=== PATIENT | male | born 1955 | race Caucasian/White ===

== ENCOUNTER 2022-05-12 02:05 | Inpatient (IN) | payer OTHER ==
[2022-05-12] MEDS ORDERED: Vancomycin 1 GM/200 ML (FROZEN) BAG ONE (02:46)
[2022-05-12] MEDS ORDERED: cefTRIAXone\\ROCEPHIN 1 GM VIAL ONE (02:46)
[2022-05-12] MEDS ORDERED: Acetaminophen 500 MG TAB ONE (02:46)
[2022-05-12 03:15] LABS: Band 19 % (5-11); Hemoglobin 12.2 g/dL (14.0-18.0); Lymphocytes 1 % (21-51); MDiff Complete? YES; Mean Corpuscular HGB CONC 31.9 g/dL (32.0-36.0); Mean Corpuscular Hemoglobin 25.5 pg (27.0-31.0); Mean Corpuscular Volume 79.9 fl (78.0-98.0); Mean Platelet Volume 8.3 fL (7.4-10.4); Monocytes 4 % (0-10); Neutrophil 76 % (42-75); Platelet Count 234 10x3/uL (130-400); Platelet Morphology Comment Appears Adequate; RBC Distribution Width 16.1 % (11.5-14.5); RBC Morphology Normal; Red Blood Cell (RBC) Count 4.78 mill/uL (4.70-6.10)
[2022-05-12] MEDS ORDERED: NOREPINEPHRINE 8 MG/250 ML-D5W 250 ML ONE ×2 (03:32→12:51)
[2022-05-12 03:40] LABS: ALT (SGPT) 13 U/L (8-55); AST (SGOT) 19 U/L (5-34); Albumin 2.8 g/dL (3.4-4.8); Alkaline Phosphatase 200 U/L (40-110); Anion Gap 17 mmol/L (10-20); BUN (Urea Nitrogen) 17 mg/dL (8.4-25.7); Bilirubin, Total 0.6 mg/dL (0.2-1.2); Calc. Creatinine Clearance 0 mL/min (70-130); Carbon Dioxide 13 mmol/L (23-31); Chloride 111 mmol/L (98-107); Estimated GFR 92; Globulin 2.7 g/dL (2.4-3.5); Glucose 78 mg/dL (80-115); Magnesium 1.4 mg/dL (1.6-2.6); Potassium 3.4 mmol/L (3.5-5.1); Protein, Total 5.5 g/dL (5.8-8.1); Sodium 138 mmol/L (136-145)
[2022-05-12 04:32] LABS: Bacteria/HPF None Seen HPF (None Seen); Bilirubin Negative (Negative); Blood, Urine 3+ (Negative); Clarity Extra Turbid (Clear); Glucose, Urine (Dipstick) Normal (Negative); Ketone, Urine Negative (Negative); Leukocyte 250 Leu/uL (Negative); Nitrite 2+ (Negative); Protein, Urine (Dipstick) 50 mg/dL (Neg-Trace); RBC/HPF Greater than 50 HPF (0-3); Specific Gravity, Urine 1.013 (1.002-1.036); Squamous Epithelial None Seen HPF (0-3); Urobilinogen Normal mg/dL (Less than 2); WBC/HPF Greater than 50 HPF (0-3)
[2022-05-12] MEDS ORDERED: Ondansetron PF 4 MG/2 ML Vial IVP PRN (05:07)
[2022-05-12] MEDS ORDERED: Acetaminophen 325 MG TAB PO PRN (05:07)
[2022-05-12] MEDS ORDERED: VANCOMYCIN IVPB PRN (05:09)
[2022-05-12] MEDS ORDERED: Dextrose 50% Abboject 50 ML SYRINGE SLOW IVP PRN (05:10)
[2022-05-12] MEDS ORDERED: Dextrose 5% in Water 1,000 ML IV PRN (05:10)
[2022-05-12] MEDS ORDERED: Potassium Chloride 20 MEQ TAB ONE (05:25)
[2022-05-12] MEDS ORDERED: Magnesium 2 GM/50 ML BAG (IN WATER) ONE (05:25)
[2022-05-12] MEDS ORDERED: Cefepime 2 GM VIAL ONE (05:43)
[2022-05-12] MEDS: Sodium Bicarbonate 150 MEQ in Dextrose 5% in Water 1,000 ML IV SCH ×2 (06:26→20:19)
[2022-05-12] MEDS: Cefepime 2 GM in Sodium Chloride 0.9% 100 ML IVPB SCH ×2 (06:37→17:49)
[2022-05-12 08:05] LABS: SARS-CoV-2 NAA Rapid Test Not Detected (NotDetected)
[2022-05-12] MEDS ORDERED: Famotidine 20 MG TAB ONE (08:31)
[2022-05-12] MEDS: Famotidine 20 MG TAB PO SCH ×2 (08:32→20:19)
[2022-05-12 08:33] LABS: Sodium 138 mmol/L (136-145)
[2022-05-12 08:34] LABS: Anion Gap 16 mmol/L (10-20); BUN (Urea Nitrogen) 18 mg/dL (8.4-25.7); Calc. Creatinine Clearance 0 mL/min (70-130); Calcium 7.8 mg/dL (7.8-10.44); Carbon Dioxide 14 mmol/L (23-31); Chloride 111 mmol/L (98-107); Estimated GFR 96; Glucose 70 mg/dL (80-115); Potassium 3.2 mmol/L (3.5-5.1)
[2022-05-12] MEDS ORDERED: Cefepime 2 GM in Sodium Chloride 0.9% 100 ML IVPB SCH (09:00)
[2022-05-12 09:34] LABS: Lactic Acid 3.9 mmol/L (0.5-2.2)
[2022-05-12] MEDS ORDERED: VANCOMYCIN 1.75 GM/500 ML BAG 1.75 GM in Premix Bag 1 BAG IVPB SCH (13:00)
[2022-05-12] MEDS ORDERED: NOREPINEPHRINE 8 MG/250 ML-D5W 250 ML IVPB SCH (13:00)
[2022-05-12] MEDS: Enoxaparin Sodium 40 MG/0.4 ML SYRINGE SC SCH (20:19)
[2022-05-12] MEDS ORDERED: Potassium Chloride 20 MEQ TAB PO SCH (21:30)
[2022-05-13] MEDS ORDERED: VANCOMYCIN 1.25 GM/250 ML BAG 1.25 GM in Premix Bag 1 BAG IVPB SCH (03:00)
[2022-05-13 05:10] LABS: Anisocytosis SLIGHT = 6-15 cells (100X) (0-5/hpf); Band 17 % (5-11); Hemoglobin 10.6 g/dL (14.0-18.0); Hypochromia SLIGHT = 6-15 cells (100X) (0-5/hpf); Lymphocytes 9 % (21-51); MDiff Complete? YES; Mean Corpuscular HGB CONC 30.9 g/dL (32.0-36.0); Mean Corpuscular Hemoglobin 25.2 pg (27.0-31.0); Mean Corpuscular Volume 81.5 fl (78.0-98.0); Mean Platelet Volume 8.5 fL (7.4-10.4); Monocytes 10 % (0-10); Neutrophil 63 % (42-75); Platelet Count 210 10x3/uL (130-400); Platelet Morphology Comment Appears Adequate; Polychromasia SLIGHT = 2-3 cells (100X) (0-2/hpf); Red Blood Cell (RBC) Count 4.21 mill/uL (4.70-6.10); White Blood Cell (WBC) Count 24.2 10x3/uL (4.8-10.8)
[2022-05-13 05:14] LABS: ALT (SGPT) 14 U/L (8-55); AST (SGOT) 22 U/L (5-34); Albumin 2.7 g/dL (3.4-4.8); Alkaline Phosphatase 189 U/L (40-110); Anion Gap 12 mmol/L (10-20); BUN (Urea Nitrogen) 13 mg/dL (8.4-25.7); Bilirubin, Total 0.4 mg/dL (0.2-1.2); Calc. Creatinine Clearance 120 mL/min (70-130); Calcium 8.6 mg/dL (7.8-10.44); Carbon Dioxide 25 mmol/L (23-31); Chloride 112 mmol/L (98-107); Estimated GFR 103; Globulin 2.9 g/dL (2.4-3.5); Glucose 86 mg/dL (80-115); Magnesium 2.1 mg/dL (1.6-2.6); Potassium 3.6 mmol/L (3.5-5.1); Protein, Total 5.6 g/dL (5.8-8.1); Sodium 145 mmol/L (136-145)
[2022-05-13] MEDS: Cefepime 2 GM in Sodium Chloride 0.9% 100 ML IVPB SCH ×3 (05:40→21:09)
[2022-05-13] MEDS: Famotidine 20 MG TAB PO SCH ×2 (10:20→21:08)
[2022-05-13] MEDS: Sodium Bicarbonate 150 MEQ in Dextrose 5% in Water 1,000 ML IV SCH (13:16)
[2022-05-13] MEDS: Enoxaparin Sodium 40 MG/0.4 ML SYRINGE SC SCH (21:08)
[2022-05-14 05:17] LABS: ALT (SGPT) 11 U/L (8-55); AST (SGOT) 18 U/L (5-34); Albumin 2.6 g/dL (3.4-4.8); Alkaline Phosphatase 187 U/L (40-110); Anion Gap 10 mmol/L (10-20); BUN (Urea Nitrogen) 11 mg/dL (8.4-25.7); Bilirubin, Total 0.5 mg/dL (0.2-1.2); Calc. Creatinine Clearance 129 mL/min (70-130); Calcium 8.5 mg/dL (7.8-10.44); Carbon Dioxide 24 mmol/L (23-31); Chloride 108 mmol/L (98-107); Estimated GFR 106; Globulin 2.8 g/dL (2.4-3.5); Glucose 80 mg/dL (80-115); Potassium 3.4 mmol/L (3.5-5.1); Protein, Total 5.4 g/dL (5.8-8.1); Sodium 139 mmol/L (136-145)
[2022-05-14 05:24] LABS: Band 32 % (5-11); Hemoglobin 10.4 g/dL (14.0-18.0); Hypochromia SLIGHT = 6-15 cells (100X) (0-5/hpf); Lymphocytes 11 % (21-51); MDiff Complete? YES; Mean Corpuscular HGB CONC 30.8 g/dL (32.0-36.0); Mean Corpuscular Hemoglobin 25.2 pg (27.0-31.0); Mean Corpuscular Volume 81.7 fl (78.0-98.0); Mean Platelet Volume 8.3 fL (7.4-10.4); Monocytes 5 % (0-10); Neutrophil 52 % (42-75); Platelet Count 238 10x3/uL (130-400); Platelet Morphology Comment Appears Adequate; RBC Distribution Width 15.9 % (11.5-14.5); Red Blood Cell (RBC) Count 4.14 mill/uL (4.70-6.10); White Blood Cell (WBC) Count 26.1 10x3/uL (4.8-10.8)
[2022-05-14] MEDS: Cefepime 2 GM in Sodium Chloride 0.9% 100 ML IVPB SCH ×3 (06:27→21:48)
[2022-05-14] MEDS: Famotidine 20 MG TAB PO SCH (09:00)
[2022-05-14] MEDS ORDERED: Potassium Chloride 20 MEQ TAB PO SCH (09:15)
[2022-05-14] MEDS ORDERED: traMADol HCl 50 MG TAB PO PRN (14:24)
[2022-05-14] MEDS ORDERED: Polyethylene Glycol 3350 17 GM Packet PO PRN (14:24)
[2022-05-14] MEDS ORDERED: tiZANidine HCl 4 MG TAB PO PRN (14:38)
[2022-05-14] MEDS: Ascorbic Acid 500 mg Chewable Tablet PO SCH (17:10)
[2022-05-14] MEDS: Atorvastatin Calcium 10 MG TAB PO SCH (20:28)
[2022-05-14] MEDS: Tamsulosin HCl 0.4 MG CAP PO SCH (20:28)
[2022-05-14] MEDS: Pramipexole Di-HCl 0.25 MG TAB PO SCH (20:28)
[2022-05-14] MEDS: traZODone HCl 50 MG TAB PO SCH (20:29)
[2022-05-14] MEDS: Enoxaparin Sodium 40 MG/0.4 ML SYRINGE SC SCH (20:29)
[2022-05-14] MEDS: Latanoprost 0.005% Ophth Soln 2.5 ml Bottle EA EYE SCH (20:29)
[2022-05-14] MEDS: Aspirin 81 mg Enteric Coated Tablet PO SCH (20:29)
[2022-05-14] MEDS: Timolol 0.5% Ophth Soln 5 ml Bottle EA EYE SCH (20:30)
[2022-05-15 05:06] LABS: Hemoglobin 10.9 g/dL (14.0-18.0); Mean Corpuscular HGB CONC 31.4 g/dL (32.0-36.0); Mean Corpuscular Hemoglobin 25.4 pg (27.0-31.0); Mean Corpuscular Volume 80.8 fl (78.0-98.0); Mean Platelet Volume 8.2 fL (7.4-10.4); Platelet Count 254 10x3/uL (130-400); Red Blood Cell (RBC) Count 4.31 mill/uL (4.70-6.10); White Blood Cell (WBC) Count 20.2 10x3/uL (4.8-10.8)
[2022-05-15 05:15] LABS: ALT (SGPT) 11 U/L (8-55); AST (SGOT) 15 U/L (5-34); Albumin 2.7 g/dL (3.4-4.8); Alkaline Phosphatase 182 U/L (40-110); Anion Gap 8 mmol/L (10-20); BUN (Urea Nitrogen) 11 mg/dL (8.4-25.7); Bilirubin, Total 0.6 mg/dL (0.2-1.2); Calc. Creatinine Clearance 119 mL/min (70-130); Calcium 8.7 mg/dL (7.8-10.44); Carbon Dioxide 27 mmol/L (23-31); Chloride 106 mmol/L (98-107); Estimated GFR 103; Glucose 88 mg/dL (80-115); Potassium 4.1 mmol/L (3.5-5.1); Protein, Total 5.7 g/dL (5.8-8.1); Sodium 137 mmol/L (136-145)
[2022-05-15 05:31] LABS: Anisocytosis SLIGHT = 6-15 cells (100X) (0-5/hpf); Band 17 % (5-11); Burr Cells SLIGHT = 2-5 cells (100X) (0-1/hpf); Eosinophils 1 % (0-10); Hypochromia SLIGHT = 6-15 cells (100X) (0-5/hpf); Lymphocytes 6 % (21-51); MDiff Complete? YES; Monocytes 2 % (0-10); Neutrophil 73 % (42-75); Platelet Morphology Comment Appears Adequate; Polychromasia SLIGHT = 2-3 cells (100X) (0-2/hpf)
[2022-05-15] MEDS: Cefepime 2 GM in Sodium Chloride 0.9% 100 ML IVPB SCH ×3 (05:44→22:33)
[2022-05-15] MEDS: Divalproex Sodium 125 mg Sprinkle Capsule PO SCH (10:13)
[2022-05-15] MEDS: Saccharomyces boulardii 250 MG CAP PO SCH (10:14)
[2022-05-15] MEDS: Ascorbic Acid 500 mg Chewable Tablet PO SCH ×2 (10:15→17:26)
[2022-05-15] MEDS: Potassium Chloride 20 MEQ TAB PO SCH (10:15)
[2022-05-15] MEDS: Multivit, Therapeutic 1 TAB PO SCH (10:15)
[2022-05-15] MEDS: DULoxetine 30 MG CAP PO SCH (10:15)
[2022-05-15] MEDS: Pramipexole Di-HCl 0.25 MG TAB PO SCH ×2 (10:16→22:32)
[2022-05-15] MEDS: Zinc Sulfate 220 MG CAP PO SCH (10:16)
[2022-05-15] MEDS: Timolol 0.5% Ophth Soln 5 ml Bottle EA EYE SCH ×2 (10:17→22:32)
[2022-05-15] MEDS: Tamsulosin HCl 0.4 MG CAP PO SCH (22:31)
[2022-05-15] MEDS: Enoxaparin Sodium 40 MG/0.4 ML SYRINGE SC SCH (22:31)
[2022-05-15] MEDS: traZODone HCl 50 MG TAB PO SCH (22:31)
[2022-05-15] MEDS: Atorvastatin Calcium 10 MG TAB PO SCH (22:31)
[2022-05-15] MEDS: Latanoprost 0.005% Ophth Soln 2.5 ml Bottle EA EYE SCH (22:32)
[2022-05-15] MEDS: Aspirin 81 mg Enteric Coated Tablet PO SCH (22:32)
[2022-05-16 04:32] LABS: Hemoglobin 11.7 g/dL (14.0-18.0); Mean Corpuscular Hemoglobin 24.4 pg (27.0-31.0); Mean Corpuscular Volume 81.4 fl (78.0-98.0); Mean Platelet Volume 8.3 fL (7.4-10.4); Platelet Count 271 10x3/uL (130-400); RBC Distribution Width 16.4 % (11.5-14.5); Red Blood Cell (RBC) Count 4.79 mill/uL (4.70-6.10); White Blood Cell (WBC) Count 15.9 10x3/uL (4.8-10.8)
[2022-05-16 04:56] LABS: Anion Gap 10 mmol/L (10-20); BUN (Urea Nitrogen) 10 mg/dL (8.4-25.7); Calc. Creatinine Clearance 109 mL/min (70-130); Calcium 8.8 mg/dL (7.8-10.44); Carbon Dioxide 24 mmol/L (23-31); Chloride 106 mmol/L (98-107); Estimated GFR 102; Glucose 91 mg/dL (80-115); Potassium 4.3 mmol/L (3.5-5.1); Sodium 136 mmol/L (136-145)
[2022-05-16 05:23] LABS: Anisocytosis SLIGHT = 6-15 cells (100X) (0-5/hpf); Band 2 % (5-11); Eosinophils 7 % (0-10); Hypochromia SLIGHT = 6-15 cells (100X) (0-5/hpf); Lymphocytes 18 % (21-51); MDiff Complete? YES; Metamyelocyte 4 % (0-0); Monocytes 9 % (0-10); Myelocyte 2 % (0-0); Neutrophil 57 % (42-75); Nucleated RBC 1 % (0); Platelet Morphology Comment Appears Adequate; Polychromasia SLIGHT = 2-3 cells (100X) (0-2/hpf)
[2022-05-16] MEDS: Cefepime 2 GM in Sodium Chloride 0.9% 100 ML IVPB SCH ×3 (05:50→21:31)
[2022-05-16] MEDS: Ascorbic Acid 500 mg Chewable Tablet PO SCH ×2 (09:16→17:20)
[2022-05-16] MEDS: Saccharomyces boulardii 250 MG CAP PO SCH (09:16)
[2022-05-16] MEDS: DULoxetine 30 MG CAP PO SCH (09:16)
[2022-05-16] MEDS: Potassium Chloride 20 MEQ TAB PO SCH (09:16)
[2022-05-16] MEDS: Timolol 0.5% Ophth Soln 5 ml Bottle EA EYE SCH ×2 (09:17→20:15)
[2022-05-16] MEDS: Multivit, Therapeutic 1 TAB PO SCH (09:17)
[2022-05-16] MEDS: Pramipexole Di-HCl 0.25 MG TAB PO SCH ×2 (09:17→20:16)
[2022-05-16] MEDS: Divalproex Sodium 125 mg Sprinkle Capsule PO SCH (09:17)
[2022-05-16] MEDS: Zinc Sulfate 220 MG CAP PO SCH (09:17)
[2022-05-16] MEDS: Latanoprost 0.005% Ophth Soln 2.5 ml Bottle EA EYE SCH (20:15)
[2022-05-16] MEDS: Atorvastatin Calcium 10 MG TAB PO SCH (20:16)
[2022-05-16] MEDS: traZODone HCl 50 MG TAB PO SCH (20:16)
[2022-05-16] MEDS: Tamsulosin HCl 0.4 MG CAP PO SCH (20:16)
[2022-05-16] MEDS: Aspirin 81 mg Enteric Coated Tablet PO SCH (20:16)
[2022-05-16] MEDS: Enoxaparin Sodium 40 MG/0.4 ML SYRINGE SC SCH (20:16)
[2022-05-17 05:29] LABS: Hemoglobin 12.2 g/dL (14.0-18.0); Mean Corpuscular HGB CONC 30.7 g/dL (32.0-36.0); Mean Corpuscular Hemoglobin 24.6 pg (27.0-31.0); Mean Corpuscular Volume 80.3 fl (78.0-98.0); Mean Platelet Volume 8.5 fL (7.4-10.4); Platelet Count 285 10x3/uL (130-400); RBC Distribution Width 16.5 % (11.5-14.5); Red Blood Cell (RBC) Count 4.94 mill/uL (4.70-6.10); White Blood Cell (WBC) Count 15.3 10x3/uL (4.8-10.8)
[2022-05-17] MEDS: Cefepime 2 GM in Sodium Chloride 0.9% 100 ML IVPB SCH ×3 (05:29→21:21)
[2022-05-17 05:32] LABS: Anion Gap 13 mmol/L (10-20); BUN (Urea Nitrogen) 11 mg/dL (8.4-25.7); Calc. Creatinine Clearance 120 mL/min (70-130); Calcium 9.3 mg/dL (7.8-10.44); Carbon Dioxide 22 mmol/L (23-31); Chloride 106 mmol/L (98-107); Estimated GFR 105; Glucose 92 mg/dL (80-115); Potassium 3.9 mmol/L (3.5-5.1); Sodium 137 mmol/L (136-145)
[2022-05-17 06:37] LABS: Band 4 % (5-11); Eosinophils 3 % (0-10); Lymphocytes 21 % (21-51); MDiff Complete? YES; Monocytes 9 % (0-10); Myelocyte 5 % (0-0); Neutrophil 58 % (42-75)
[2022-05-17] MEDS ORDERED: GUAIFENESIN SF SOLN 200 MG/10 ML UDCUP PO PRN (09:04)
[2022-05-17] MEDS: Ascorbic Acid 500 mg Chewable Tablet PO SCH ×2 (09:46→16:02)
[2022-05-17] MEDS: DULoxetine 30 MG CAP PO SCH (09:46)
[2022-05-17] MEDS: Pramipexole Di-HCl 0.25 MG TAB PO SCH ×2 (09:47→20:41)
[2022-05-17] MEDS: Potassium Chloride 20 MEQ TAB PO SCH (09:47)
[2022-05-17] MEDS: Multivit, Therapeutic 1 TAB PO SCH (09:48)
[2022-05-17] MEDS: Saccharomyces boulardii 250 MG CAP PO SCH (09:48)
[2022-05-17] MEDS: Timolol 0.5% Ophth Soln 5 ml Bottle EA EYE SCH ×2 (09:49→20:44)
[2022-05-17] MEDS: Divalproex Sodium 125 mg Sprinkle Capsule PO SCH (09:49)
[2022-05-17] MEDS: Zinc Sulfate 220 MG CAP PO SCH (09:58)
[2022-05-17 12:26] VITALS: BMI 21.1
[2022-05-17] MEDS: Enoxaparin Sodium 40 MG/0.4 ML SYRINGE SC SCH (20:41)
[2022-05-17] MEDS: traZODone HCl 50 MG TAB PO SCH (20:41)
[2022-05-17] MEDS: Atorvastatin Calcium 10 MG TAB PO SCH (20:42)
[2022-05-17] MEDS: Tamsulosin HCl 0.4 MG CAP PO SCH (20:42)
[2022-05-17] MEDS: Latanoprost 0.005% Ophth Soln 2.5 ml Bottle EA EYE SCH (20:43)
[2022-05-17] MEDS: Aspirin 81 mg Enteric Coated Tablet PO SCH (20:43)
[2022-05-17] MEDS: Ciprofloxacin 0.2% Otic (0.25ML CONTAINER) R EAR SCH (20:43)
[2022-05-18] MEDS: Cefepime 2 GM in Sodium Chloride 0.9% 100 ML IVPB SCH (05:20)
[2022-05-18] MEDS: Divalproex Sodium 125 mg Sprinkle Capsule PO SCH (08:24)
[2022-05-18] MEDS: Multivit, Therapeutic 1 TAB PO SCH (08:24)
[2022-05-18] MEDS: Ascorbic Acid 500 mg Chewable Tablet PO SCH ×2 (08:24→17:22)
[2022-05-18] MEDS: Timolol 0.5% Ophth Soln 5 ml Bottle EA EYE SCH ×2 (08:24→20:22)
[2022-05-18] MEDS: Zinc Sulfate 220 MG CAP PO SCH (08:24)
[2022-05-18] MEDS: Saccharomyces boulardii 250 MG CAP PO SCH (08:24)
[2022-05-18] MEDS: Pramipexole Di-HCl 0.25 MG TAB PO SCH ×2 (08:24→20:21)
[2022-05-18] MEDS: Potassium Chloride 20 MEQ TAB PO SCH (08:24)
[2022-05-18] MEDS: DULoxetine 30 MG CAP PO SCH (08:24)
[2022-05-18] MEDS: Ciprofloxacin 0.2% Otic (0.25ML CONTAINER) R EAR SCH ×2 (08:25→20:22)
[2022-05-18] MEDS: traZODone HCl 50 MG TAB PO SCH (20:21)
[2022-05-18] MEDS: Atorvastatin Calcium 10 MG TAB PO SCH (20:21)
[2022-05-18] MEDS: Aspirin 81 mg Enteric Coated Tablet PO SCH (20:21)
[2022-05-18] MEDS: Tamsulosin HCl 0.4 MG CAP PO SCH (20:21)
[2022-05-18] MEDS: Latanoprost 0.005% Ophth Soln 2.5 ml Bottle EA EYE SCH (20:22)
[2022-05-18] MEDS: Enoxaparin Sodium 40 MG/0.4 ML SYRINGE SC SCH (20:22)
[2022-05-19 06:50] LABS: Anion Gap 12 mmol/L (10-20); BUN (Urea Nitrogen) 11 mg/dL (8.4-25.7); Calc. Creatinine Clearance 110 mL/min (70-130); Calcium 8.9 mg/dL (7.8-10.44); Carbon Dioxide 23 mmol/L (23-31); Chloride 102 mmol/L (98-107); Estimated GFR 100; Glucose 108 mg/dL (80-115); Potassium 3.9 mmol/L (3.5-5.1); Sodium 133 mmol/L (136-145)
[2022-05-19 07:25] LABS: Band 6 % (5-11); Eosinophils 3 % (0-10); Hemoglobin 11.6 g/dL (14.0-18.0); Lymphocytes 26 % (21-51); MDiff Complete? YES; Mean Corpuscular HGB CONC 31.1 g/dL (32.0-36.0); Mean Corpuscular Hemoglobin 25.2 pg (27.0-31.0); Mean Platelet Volume 8.6 fL (7.4-10.4); Monocytes 5 % (0-10); Neutrophil 59 % (42-75); Platelet Count 290 10x3/uL (130-400); RBC Distribution Width 16.9 % (11.5-14.5); Red Blood Cell (RBC) Count 4.61 mill/uL (4.70-6.10); White Blood Cell (WBC) Count 11.5 10x3/uL (4.8-10.8)
[2022-05-19] MEDS: Saccharomyces boulardii 250 MG CAP PO SCH (08:19)
[2022-05-19] MEDS: Ascorbic Acid 500 mg Chewable Tablet PO SCH ×2 (08:20→17:09)
[2022-05-19] MEDS: Pramipexole Di-HCl 0.25 MG TAB PO SCH ×2 (08:20→20:34)
[2022-05-19] MEDS: Divalproex Sodium 125 mg Sprinkle Capsule PO SCH (08:20)
[2022-05-19] MEDS: Timolol 0.5% Ophth Soln 5 ml Bottle EA EYE SCH ×2 (08:20→20:30)
[2022-05-19] MEDS: DULoxetine 30 MG CAP PO SCH (08:20)
[2022-05-19] MEDS: Potassium Chloride 20 MEQ TAB PO SCH (08:20)
[2022-05-19] MEDS: Multivit, Therapeutic 1 TAB PO SCH (08:20)
[2022-05-19] MEDS: Zinc Sulfate 220 MG CAP PO SCH (08:20)
[2022-05-19] MEDS: Ciprofloxacin 0.2% Otic (0.25ML CONTAINER) R EAR SCH ×2 (08:21→20:29)
[2022-05-19] MEDS: traZODone HCl 50 MG TAB PO SCH (20:30)
[2022-05-19] MEDS: Atorvastatin Calcium 10 MG TAB PO SCH (20:30)
[2022-05-19] MEDS: Latanoprost 0.005% Ophth Soln 2.5 ml Bottle EA EYE SCH (20:36)
[2022-05-19] MEDS: Tamsulosin HCl 0.4 MG CAP PO SCH (20:36)
[2022-05-20 06:13] LABS: #Eosinphils 0.2 thou/uL (0.0-0.7); #Lymphocytes 3.1 thou/uL (1.20-3.40); #Monocytes 1.7 thou/uL (0.11-0.59); #Neutrophils 8.1 thou/uL (1.40-6.50); %Basophils 0.2 % (0.0-1.0); %Eosinophils 1.6 % (0.0-10.0); %Lymphocytes 23.4 % (21.0-51.0); %Monocytes 12.7 % (0.0-10.0); %Neutrophils 62.1 % (42.0-75.0); Hemoglobin 11.7 g/dL (14.0-18.0); Mean Corpuscular HGB CONC 30.7 g/dL (32.0-36.0); Mean Corpuscular Hemoglobin 24.7 pg (27.0-31.0); Mean Corpuscular Volume 80.4 fl (78.0-98.0); Mean Platelet Volume 8.5 fL (7.4-10.4); Platelet Count 348 10x3/uL (130-400); RBC Distribution Width 16.8 % (11.5-14.5); Red Blood Cell (RBC) Count 4.73 mill/uL (4.70-6.10)
[2022-05-20] MEDS: Ciprofloxacin 0.2% Otic (0.25ML CONTAINER) R EAR SCH (09:02)
[2022-05-20] MEDS: Timolol 0.5% Ophth Soln 5 ml Bottle EA EYE SCH (09:02)
[2022-05-20] MEDS: Pramipexole Di-HCl 0.25 MG TAB PO SCH (09:03)
[2022-05-20] MEDS: Ascorbic Acid 500 mg Chewable Tablet PO SCH (09:03)
[2022-05-20] MEDS: Potassium Chloride 20 MEQ TAB PO SCH (09:03)
[2022-05-20] MEDS: Saccharomyces boulardii 250 MG CAP PO SCH (09:03)
[2022-05-20] MEDS: Zinc Sulfate 220 MG CAP PO SCH (09:03)
[2022-05-20] MEDS: DULoxetine 30 MG CAP PO SCH (09:03)
[2022-05-20] MEDS: Divalproex Sodium 125 mg Sprinkle Capsule PO SCH (09:03)
[2022-05-20] MEDS: Multivit, Therapeutic 1 TAB PO SCH (09:03)
[2022-05-20] MEDS ORDERED: Benzonatate 100 MG CAP PO PRN (10:17)
[2022-05-20] MEDS ORDERED: Benzonatate 100 MG CAP PO SCH (10:30)
[2022-05-20 17:43] VITALS: BP 119/79; TEMP 98.5
== END 2022-05-20 16:43 | disposition home or self-care (01) | DRG 673 ==
LOC: ERS 02:05 → ERHOLD 05:09 → CCU 09:16 → 2NO 05-13 22:05 → T4-A 05-17 18:29
PROVIDERS: ADMIT Internal Medicine; ATTEND Family Medicine
PROC: 3E04329 Introduction of Other Anti-infective into Central Vein, Percutaneous Approach (ICD-10-PCS; principal; 2022-05-12)
PROC: 3E043XZ Introduction of Vasopressor into Central Vein, Percutaneous Approach (ICD-10-PCS; 2022-05-12)
PROC: 0JBL0ZZ Excision of Right Upper Leg Subcutaneous Tissue and Fascia, Open Approach (ICD-10-PCS; 2022-05-14)
DX: T83.511A Infection and inflammatory reaction due to indwelling urethral catheter, initial encounter (principal); Z66 Do not resuscitate; Z20.822 Contact with and (suspected) exposure to COVID-19; A41.52 Sepsis due to Pseudomonas; R65.20 Severe sepsis without septic shock; G92.8 Other toxic encephalopathy; E87.20 Acidosis, unspecified; E44.0 Moderate protein-calorie malnutrition; G82.20 Paraplegia, unspecified; N39.0 Urinary tract infection, site not specified; Y84.6 Urinary catheterization as the cause of abnormal reaction of the patient, or of later complication, without mention of misadventure at the time of the procedure; E87.6 Hypokalemia; E83.42 Hypomagnesemia; I10 Essential (primary) hypertension; E78.5 Hyperlipidemia, unspecified; K21.9 Gastro-esophageal reflux disease without esophagitis; N40.0 Benign prostatic hyperplasia without lower urinary tract symptoms; F31.9 Bipolar disorder, unspecified; H40.9 Unspecified glaucoma; Z96.642 Presence of left artificial hip joint; L89.310 Pressure ulcer of right buttock, unstageable; L89.152 Pressure ulcer of sacral region, stage 2; S39.848A Other specified injuries of external genitals, initial encounter; X58.XXXA Exposure to other specified factors, initial encounter; Z68.22 Body mass index [BMI] 22.0-22.9, adult; Z88.8 Allergy status to other drugs, medicaments and biological substances; Z91.012 Allergy to eggs; Z98.890 Other specified postprocedural states; Z90.49 Acquired absence of other specified parts of digestive tract; Z98.42 Cataract extraction status, left eye; Z98.41 Cataract extraction status, right eye; Z82.49 Family history of ischemic heart disease and other diseases of the circulatory system; Z82.0 Family history of epilepsy and other diseases of the nervous system; Z87.891 Personal history of nicotine dependence
CPT/HCPCS: 36415; 36416; 36556; 51702; 71045; 74177; 80048; 80053; 81003; 81015; 83605; 83735; 83880; 84484; 85025; 87040; 87077; 87086; 87149; 87186; 87811; 93005; 96361; 96365; 96366; 96367; 96375; 97139; J0692; J0696; J1650; J3370; J3370-JW; J3475; J3490; J7070; U0002

== ENCOUNTER 2022-07-09 11:59 | Emergency (ER) | payer OTHER ==
[2022-07-09 12:48] LABS: Hemoglobin 10.7 g/dL (14.0-18.0); Mean Corpuscular HGB CONC 30.7 g/dL (32.0-36.0); Mean Corpuscular Hemoglobin 24.7 pg (27.0-31.0); Mean Corpuscular Volume 80.5 fl (78.0-98.0); Mean Platelet Volume 7.4 fL (7.4-10.4); Platelet Count 482 10x3/uL (130-400); RBC Distribution Width 17.3 % (11.5-14.5); Red Blood Cell (RBC) Count 4.33 mill/uL (4.70-6.10); White Blood Cell (WBC) Count 20.3 10x3/uL (4.8-10.8)
[2022-07-09 13:02] LABS: Anisocytosis SLIGHT = 6-15 cells (100X) (0-5/hpf); Band 6 % (5-11); Eosinophils 1 % (0-10); Hypochromia SLIGHT = 6-15 cells (100X) (0-5/hpf); Lymphocytes 29 % (21-51); MDiff Complete? YES; Metamyelocyte 1 % (0-0); Monocytes 10 % (0-10); Neutrophil 53 % (42-75); Platelet Morphology Comment Appears Increased; Polychromasia SLIGHT = 2-3 cells (100X) (0-2/hpf)
[2022-07-09 13:12] LABS: ALT (SGPT) 7 U/L (8-55); AST (SGOT) 12 U/L (5-34); Albumin 2.7 g/dL (3.4-4.8); Alkaline Phosphatase 149 U/L (40-110); Anion Gap 11 mmol/L (10-20); BUN (Urea Nitrogen) 17 mg/dL (8.4-25.7); Bilirubin, Total 0.7 mg/dL (0.2-1.2); Calc. Creatinine Clearance 0 mL/min (70-130); Calcium 8.2 mg/dL (7.8-10.44); Carbon Dioxide 24 mmol/L (23-31); Chloride 100 mmol/L (98-107); Estimated GFR 104; Globulin 2.5 g/dL (2.4-3.5); Glucose 106 mg/dL (80-115); Potassium 3.4 mmol/L (3.5-5.1); Protein, Total 5.2 g/dL (5.8-8.1); Sodium 132 mmol/L (136-145)
== END 2022-07-09 15:49 | disposition home or self-care (01) ==
LOC: ERS 11:59
DX: S31.819A Unspecified open wound of right buttock, initial encounter (principal); D72.829 Elevated white blood cell count, unspecified
CPT/HCPCS: 36415; 80053; 85025